=== PATIENT | female | born 1965 | race Caucasian/White ===

== ENCOUNTER 2019-01-03 11:55 | Emergency (ER) | payer OTHER ==
[~2019-01-03] VITALS: Ht 165.1 cm; Wt 184.6 kg
[~2019-01-03 11:55] MED LIST: KEFLEX500 MG PO; NORCO 5-325 TA1 EACH PO
[2019-01-03] MEDS ORDERED: BACTRIM DS TAB1 EACH PO (12:29)
== END 2019-01-03 12:50 | disposition home or self-care (01) ==
LOC: ED 11:55
DX: L03.032 Cellulitis of left toe (principal)
CPT/HCPCS: 99283

== ENCOUNTER 2020-11-22 07:15 | Day surgery (SDC) | payer OTHER ==
[~2020-11-22] VITALS: Ht 165.1 cm; Wt 175.4 kg
[~2020-11-22 07:15] MED LIST changes: +BACTRIM DS TAB1 EACH PO; +CYMBALTA20 MG PO; +K-TAB ER20 MEQ PO; +LASIX20 MG PO; +LOSARTAN-HCTZ1 EAC1 PO; +MULTI VITAMIN1 EACH PO; +NORVASC10 MG PO; +OSTERA TABLET1 EACH PO; +TOPROL XL100 MG PO; +TRULICITY0.75 MG/0. SUB-Q
--- NOTE | 2020-11-22 11:24 | NUR ---
11/22/20 1124 [place] 1109 PT ARRIVED TO PACU ON RA AND TALKING TO RN. VSS. PT DENIES PAIN AND NAUSEA.
--- NOTE | 2020-11-22 11:52 | NUR ---
PATIENT BACK TO ROOM FROM PACU. REPORT GIVEN FROM MAXINE DURAN. PATIENT RESTING COMFORTABLY. STATES PAIN IS 6/10 IN RIGHT SHOULDER. PATIETN IS STILL NUMB FROM HER SPINAL. SMALL AMOUNT OF DRAINAGE ON HER CHI PAD. DENIES NAUSEA. PROVIDED PATIENT WITH WATER. DECLINES CRACKERS OR APPLESAUCE AT THIS TIME. CALL LIGHT WITHIN REACH.
--- NOTE | 2020-11-22 13:00 | NUR ---
PATIENT RESTING COMFORTABLY IN BED. PAIN IS 4/10 IN THE VAGINAL AREA. STATES SOME NAUSEA BUT PREFERS NOT MEDICATION AT THIS TIME. SMALL AMOUNT OF DRAINAGE ON HER CHI PAD. PATIENT IS DRINKING SOME WATER. DECLINES CRACKERS OR APPLESAUCE AT THIS TIME. CALL LIGHT WITHIN REACH.
--- NOTE | 2020-11-22 14:00 | NUR ---
PATIENT UP TO THE BATHROOM WITH 1 RN ASSIST. STEADY GAIT AND TOLERATED WELL. PAIN 4/10. SMALL AMOUNT OF DRAINAGE ON CHI PAD.
--- NOTE | 2020-11-22 14:00 | NUR ---
PATIENT STATES NAUSEA RESOLVED. SHE DID EAT PUDDING AND HAD MORE WATER.
--- NOTE | 2020-11-22 14:30 | NUR ---
PROVIDED PATIENT WITH DISCHARGE INSTRUCTIONS. PATIENT VERBALIZED UNDERSTANDING AND ALL QUESTIONS ANSWERED. PAIN 4/10. PROVIDED WHEELCHAIR RIDE TO FRONT DOOR WHERE HER SON WAS WAITING WITH THE CAR.
--- NOTE | 2020-11-27 03:42 | OR ---
[facility] [address] [place], [place] [address] Signed DATE OF OPERATION: 11/22/2020 SURGEON: Edgard Wesley DO PROCEDURES: 1. Hysteroscopy. 2. Dilation and curettage. 3. Exam under anesthesia. 4. Vaginal lesion biopsy. PREOPERATIVE DIAGNOSES: Electronically Signed By: EDGARD WESLEY DO 11/27/20 0342 PATIENT NAME: PERICO OROZCO OPERATIVE REPORT DATE OF : 63 REPORT #: [id number] PHYSICIAN: EDGARD WESLEY DO PCP: ALVARADO JACKSON DO REPORT IS CONFIDENTIAL AND NOT TO BE RELEASED WITHOUT AUTHORIZATION [facility] [address] [place] [address] [place], [place] [address] Signed Abnormal uterine bleeding, pelvic pain, vaginal lesion, and vulvar lesion - resolved. BMI 63. POST-OPERATIVE DIAGNOSIS: Abnormal uterine bleeding, pelvic pain, vaginal lesion ANESTHESIA: Spinal. ESTIMATED BLOOD LOSS: 5 mL. COMPLICATIONS: None. INDICATIONS: Pt is a 55-year-old, super morbidly obese female with history of AUB. Risks, benefits, and alternatives of hysteroscopy and d and C were discussed and she elected to proceed with procedure in the operating room. However, prior to procedure, had a planned vulvar biopsy in the office, at which time significant worsening vaginal lesion was noted. Due to pain, physical exam of the vaginal lesions was not well tolerated and decision was made to proceed with exam under anesthesia with vulvar biopsy at that time, as well as possible biopsy of vaginal lesions as well as hysteroscopy, D and C. Risks, benefits, and alternatives were discussed extensively and the patient elected to proceed. DESCRIPTION OF PROCEDURE: The patient was taken to the operating room, where spinal anesthesia was placed per Anesthesia and she was positioned in dorsal lithotomy position. The vagina was examined with findings as noted below. Weighted speculum was placed in the vagina. Anterior lip of the cervix was grasped with an Allis clamp and cervix was easily sequentially dilated with Hegar dilators to accommodate a 6 mm scope. Uterus was sounded to 12 cm. The scope was easily introduced and surveyed with significant thickening of the endometrium and polypoid appearance as noted below. Initially, only the left tubal ostia could be visualized due to the thickness of the endometrium and polypoid consistency on the right side of the uterus. MyoSure Reach device was introduced. Circumferential curettage and polypectomy were performed with improvement in anatomy appreciated. Polyps and endometrial currettings were submitted to pathology as a single specimen. At this time, right tubal ostia could also be visualized. The scope and device were removed and fluid Electronically Signed By: EDGARD WESLEY DO 11/27/20 0342 PATIENT NAME: PERICO OROZCO OPERATIVE REPORT DATE OF : 63 REPORT #: [id number] PHYSICIAN: EDGARD WESLEY DO PCP: ALVARADO JACKSON DO REPORT IS CONFIDENTIAL AND NOT TO BE RELEASED WITHOUT AUTHORIZATION [facility] [address] [place], [place] [address] Signed deficit of 205 noted. The vaginal lesion on the left had noted polypoid tissue at the 1 o'clock and 6 o'clock positions. These were excised with Bovie cautery and submitted to Pathology. The bases were cauterized with Bovie cautery with excellent hemostasis noted. The patient was taken to PACU in stable and satisfactory condition. FINDINGS: A 2 cm defect in vaginal epithelium noted bilaterally just distal to the hymenal ring. Margins were well epithelialized without any areas of ulceration or raw tissue on either side; however, on the patient's left, a large 4 x 10 mm polyp was noted in the 6 o'clock position, appearing to be fleshy and pink in appearance, as well as a second one in the 1 o'clock position measuring approximately 2 x 4 mm. The previously noted vulvar lesion had resolved and gone from a purplish atypical appearance to a drained cyst appearance with no erythema or hyperpigmentation at this time. A vulvar biopsy was not performed. Endometrial cavity noted to be thickened with a polypoid appearance obscuring visualization of the right tubal ostia initially. The cervix appeared normal. No other abnormalities were noted at this time. Edgard Wesley DO EMZ/MODL /[id number] Copies: ~ Electronically Signed By: EDGARD WESLEY DO 11/27/20 0342 PATIENT NAME: PERICO OROZCO OPERATIVE REPORT DATE OF : 63 REPORT #: [id number] PHYSICIAN: EDGARD WESLEY DO PCP: ALVARADO JACKSON DO REPORT IS CONFIDENTIAL AND NOT TO BE RELEASED WITHOUT AUTHORIZATION
--- NOTE | 2020-11-30 16:21 | PATH ---
[facility] [address] [place], [place] [address] Signed THIS IS AN AMENDED REPORT SPECIMEN(S): A VAGINAL LESION 6:00 SPECIMEN(S): B VAGINAL LESION 1:00 SPECIMEN(S): C ENDOMETRIAL CURETTINGS SPECIMEN SOURCE: A. VAGINAL LESION 6:00 B. VAGINAL LESION 1:00 C. ENDOMETRIAL CURETTINGS CLINICAL HISTORY: Vulva lesion, vaginal lesion, vaginal pain, abnormal uterine bleeding. REASON FOR AMENDMENT: To change diagnosis for specimen C from "endometrioid intraepithelial neoplasia with atypia". All changes underlined. 11/30/2020 FINAL PATHOLOGIC DIAGNOSIS: A. Vaginal lesion, 6 o'clock: - Acrochordon (skin tag). B. Vaginal lesion, 1 o'clock: - Acrochordon (skin tag). C. Endometrium, curettings: - Endometrial adenocarcinoma, endometrioid histologic type, FIGO grade 1. COMMENT: Case discussed with Dr. Wesley on November 30, 2020. As part of [facility]' Quality Improvement Program, this case was reviewed by another member of our pathology staff. TWK:SILVIA:miley:em:C1NR MICROSCOPIC EXAMINATION: AB. The specimen is a benign skin tag without atypical features. C. This lesion is characterized by closely packed glands with stroma still present between glandular basement membranes. There is variation of gland size with cystic dilatation and irregular luminal contours. Cells demonstrate prominent enlarged nucleoli with coarsened vesicular chromatin. TWK:miley PATIENT NAME: PERICO OROZCO PATHOLOGY DATE OF : 63 REPORT #: [id number] PHYSICIAN: NIKKI CARTER PCP: ALVARADO JACKSON DO REPORT IS CONFIDENTIAL AND NOT TO BE RELEASED WITHOUT AUTHORIZATION [facility] [address] [place], [place] [address] Signed GROSS DESCRIPTION: Three specimens are received in three containers, labeled "DK." A. The specimen, labeled "DK, A," and designated on the requisition "vaginal lesion 6 o'clock," is received in formalin and consists of one black-pink mucosal tissue fragment measuring 0.8 x 0.6 x 0.3 cm. The point of attachment is inked black, specimen is trisected and entirely submitted in cassette A1. B. The specimen, labeled "DK, B," and designated on the requisition "vaginal lesion 1 o'clock," is received in formalin and consists of one black-brown mucosal tissue fragment measuring 0.3 x 0.3 x 0.2 cm. Specimen is entirely submitted in cassette B1. C. The specimen, labeled "DK, C," and designated on the requisition "endometrial curettings," is received in formalin and consists of black pink soft tissue fragments with mucus and possible clot material measuring 7.6 x 3.0 x 0.7 cm in aggregate. Specimen is filtered and entirely submitted C1-C4. AT (under the direct supervision of a pathologist) The Gross Description was prepared using a voice recognition system. The report was reviewed for accuracy; however, sound-alike word errors, addition and/or deletions may occur. If there is any question about this report, please contact Client Services. PERFORMING LABORATORY: The technical component was performed by [facility], [address] [place] [id number] (Quenching Machine Operator: Neela Rosario MD; CLIA# [id number]). The professional interpretation was performed by [facility], [facility], [address] [place] [address]. Diagnostician: Yazan Durham MD Pathologist Electronically Signed 11/30/2020 Copies: ~ PATIENT NAME: PERICO OROZCO PATHOLOGY DATE OF : 63 REPORT #: [id number] PHYSICIAN: NIKKI PATHOLOGY PCP: ALVARADO JACKSON DO REPORT IS CONFIDENTIAL AND NOT TO BE RELEASED WITHOUT AUTHORIZATION
== END 2020-11-22 14:30 | disposition home or self-care (01) ==
LOC: DS 07:15
PROVIDERS: ATTEND Obstetrics & Gynecology
PROC: 0UDB7ZX Extraction of Endometrium, Via Natural or Artificial Opening, Diagnostic (ICD-10-PCS; principal; 2020-11-22 08:15)
PROC: 0UBG8ZX Excision of Vagina, Via Natural or Artificial Opening Endoscopic, Diagnostic (ICD-10-PCS; 2020-11-22 08:15)
DX: C54.1 Malignant neoplasm of endometrium (principal); L91.8 Other hypertrophic disorders of the skin; I10 Essential (primary) hypertension; E78.00 Pure hypercholesterolemia, unspecified; E11.621 Type 2 diabetes mellitus with foot ulcer; L97.529 Non-pressure chronic ulcer of other part of left foot with unspecified severity; E66.01 Morbid (severe) obesity due to excess calories; Z68.44 Body mass index [BMI] 60.0-69.9, adult
CPT/HCPCS: 00952; 88305; J1885; J2001; J2250; J2704; J7121